=== PATIENT | female | born 1970 | race Caucasian/White ===

== ENCOUNTER 2021-05-18 18:54 | Emergency (ER) | payer MEDICAID ==
[2021-05-18 19:26] LABS: BASOPHILS % (AUTO) 0.3 %; EOSINOPHILS % (AUTO) 0.1 %; HCT - HEMATOCRIT 40.2 % (37.0-47.0); LYMPHOCYTES # (AUTO) 1.8 10^3/uL (1.5-3.5); LYMPHOCYTES % (AUTO) 20.4 %; MEAN CORPUSCULAR HGB CONC 32.3 g/dL (32.0-36.0); MEAN CORPUSCULAR VOLUME 80.4 fL (81.0-99.0); MEAN PLATELET VOLUME 8.8 fL (7.9-10.8); MONOCYTES # (AUTO) 0.7 10^3/uL (0.0-1.0); MONOCYTES % (AUTO) 7.4 %; NEUTROPHILS # (AUTO) 6.4 10^3/uL (1.5-6.6); NEUTROPHILS % (AUTO) 71.6 %; PLT - PLATELET COUNT 366 10^3/uL (130-450); RED CELL DISTRIBUTION WIDTH 14.5 % (12.0-15.0); WHITE BLOOD COUNT 8.9 x10^3/uL (4.8-10.8)
[2021-05-18] MEDS ORDERED: LORazepam 2 MG/ML VIAL IVP STA (19:29)
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
--- OUTSIDE RECORDS SUMMARY | 2021-05-18 19:49 | EXTERNAL MEDICAL SUMMARY RPT | Continuity of Care Document ---
:1970 Author Organization [facility] Address [address] [place] [address] Phone Care Team Providers Name Role Phone [place] Unavailable Unavailable Allergies No information. Encounters No information. Medications No information. Problems Procedures date description facility [id number] [facility] Results No information. Vital Signs date measurement value source 20210217 weight_standard 52.16 lb 20210217 weight_metric 23.66 kg 20210217 temperature_standard 97.9 F 20210217 temperature_metric 36.61 C 20210217 respiration_rate 20 /min 20210217 height_standard 64 in [id number] height_metric 162.56 cm 20210217 heart_rate 83 /min 20210217 BP_systolic 120 mm[Hg] 20210217 BP_diastolic 80 mm[Hg] 20210217 BMI 19.7 kg/m2
[2021-05-18 19:53] LABS: ALBUMIN 4.6 g/dL (3.2-5.5); ALBUMIN/GLOBULIN RATIO 1.2 (1.0-2.2); BILIRUBIN,TOTAL 0.5 mg/dL (0.2-1.0); CALCIUM 9.5 mg/dL (8.5-10.3); CREATININE 0.8 mg/dL (0.4-1.0); POTASSIUM 3.8 mmol/L (3.5-5.0); TOTAL PROTEIN 8.3 g/dL (6.7-8.2)
--- NOTE | 2021-05-18 19:58 | XRAY Report ---
PROCEDURE: Chest 1 View X-Ray INDICATIONS: Chest Pain TECHNIQUE: One view of the chest was acquired. COMPARISON: None FINDINGS: Surgical changes and devices: Cervical thoracic spine fixation hardware. Lungs and pleura: No pleural effusions or pneumothorax. Lungs are clear. Mediastinum: Mediastinal contours appear normal. Heart size is normal. Bones and chest wall: No suspicious bony lesions. Overlying soft tissues appear unremarkable. IMPRESSION: No acute cardiopulmonary disease process. Reviewed by: Martha Worley MD, PhD on 05/18/2021 7:56 PM PDT Approved by: Martha Worley MD, PhD on 05/18/2021 7:56 PM PDT Station ID: [id number]
[2021-05-18 21:23] VITALS: BP 139/99
== END 2021-05-18 21:29 | disposition home or self-care (01) ==
LOC: ED 18:54
DX: F22 Delusional disorders (principal)
CPT/HCPCS: 36415; 80053; 83690; 83880; 84484; 85025; 93005; 96374; 99283

== ENCOUNTER 2021-05-18 22:19 | Outpatient (CLI) | payer MEDICAID | END 2021-05-18 22:20 | disposition critical access hospital (66) | LOC: EMS 22:19 | DX: Z04.1 Encounter for examination and observation following transport accident (principal); R41.82 Altered mental status, unspecified; R46.89 Other symptoms and signs involving appearance and behavior; V49.40XA Driver injured in collision with unspecified motor vehicles in traffic accident, initial encounter; Y92.413 State road as the place of occurrence of the external cause | CPT/HCPCS: A0425; A0427 ==

== ENCOUNTER 2021-05-18 22:31 | Emergency (ER) | payer MEDICAID ==
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
[2021-05-18 22:50] LABS: BASOPHILS # (AUTO) 0.1 10^3/uL (0.0-0.1); BASOPHILS % (AUTO) 0.4 %; EOSINOPHILS % (AUTO) 0.3 %; HCT - HEMATOCRIT 38.4 % (37.0-47.0); HGB - HEMOGLOBIN 12.3 g/dL (12.0-16.0); LYMPHOCYTES # (AUTO) 2.5 10^3/uL (1.5-3.5); LYMPHOCYTES % (AUTO) 19.2 %; MEAN CORPUSCULAR HEMOGLOBIN 26.3 pg (27.0-31.0); MEAN CORPUSCULAR VOLUME 82.2 fL (81.0-99.0); MEAN PLATELET VOLUME 8.4 fL (7.9-10.8); MONOCYTES # (AUTO) 0.8 10^3/uL (0.0-1.0); MONOCYTES % (AUTO) 5.9 %; NEUTROPHILS # (AUTO) 9.6 10^3/uL (1.5-6.6); NEUTROPHILS % (AUTO) 72.8 %; PLT - PLATELET COUNT 344 10^3/uL (130-450); RED BLOOD COUNT 4.67 10^6/uL (4.20-5.40); RED CELL DISTRIBUTION WIDTH 14.6 % (12.0-15.0); WHITE BLOOD COUNT 13.2 x10^3/uL (4.8-10.8)
[2021-05-18] MEDS ORDERED: HYDROmorphone 1 MG/ML CARPUJECT IVP STA ×2 (22:53→23:13)
[2021-05-18] MEDS ORDERED: IOVERSOL 320 100 ML VIAL IVP ONE (22:59)
[2021-05-18 23:08] LABS: ALBUMIN 4.3 g/dL (3.2-5.5); ALBUMIN/GLOBULIN RATIO 1.3 (1.0-2.2); ALKALINE PHOSPHATASE 68 IU/L (42-121); ALT ALANINE AMINOTRANSFERASE 224 IU/L (10-60); AST ASPARTATE AMINOTRANSFERASE 413 IU/L (10-42); BILIRUBIN,TOTAL 0.7 mg/dL (0.2-1.0); BUN - BLOOD UREA NITROGEN 28 mg/dL (6-20); CALCIUM 9.2 mg/dL (8.5-10.3); CARBON DIOXIDE - CO2 26 mmol/L (21-32); CHLORIDE 101 mmol/L (101-111); CREATININE 1.2 mg/dL (0.4-1.0); ETOH - ETHANOL < 5.0 mg/dL; GFR - MDRD 47 (>89); GLUCOSE 167 mg/dL (70-100); LIPASE 63 U/L (22-51); POTASSIUM 3.6 mmol/L (3.5-5.0); SODIUM 140 mmol/L (135-145); TOTAL PROTEIN 7.6 g/dL (6.7-8.2)
--- OUTSIDE RECORDS SUMMARY | 2021-05-18 23:12 | EXTERNAL MEDICAL SUMMARY RPT | Continuity of Care Document ---
:1970 Author Organization [facility] Address [address] [place] [address] Phone Care Team Providers Name Role Phone [place] Unavailable Unavailable Allergies No information. Encounters No information. Medications No information. Problems Procedures date description facility [id number] [facility] Results No information. Vital Signs date measurement value source 20210217 weight_standard 52.16 lb 20210217 weight_metric 23.66 kg 20210217 temperature_standard 97.9 F 20210217 temperature_metric 36.61 C 20210217 respiration_rate 20 /min 20210217 height_standard 64 in 20210217 height_metric 162.56 cm 20210217 heart_rate 83 /min 20210217 BP_systolic 120 mm[Hg] 20210217 BP_diastolic 80 mm[Hg] 20210217 BMI 19.7 kg/m2
[2021-05-18] MEDS ORDERED: D5.45NS W/20 MEQ KCL 1,000 ML IV SCH (23:45)
[2021-05-18] MEDS ORDERED: SODIUM CHLORIDE FLUSH 0.9% 10 ML SYRINGE IVP PRN (23:53)
[2021-05-18] MEDS ORDERED: ACETAMINOPHEN 325 MG TABLET PO PRN (23:53)
[2021-05-19] MEDS ORDERED: HYDROmorphone 1 MG/ML CARPUJECT IVP STA ×3 (00:02→02:05)
[2021-05-19] MEDS ORDERED: HYDROmorphone 2 MG/ML VIAL IVP PRN (00:06)
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
[2021-05-19] MEDS ORDERED: IOVERSOL 320 100 ML VIAL IVP ONE (00:16)
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
[2021-05-19] MEDS ORDERED: SODIUM CHLORIDE FLUSH 0.9% 10 ML SYRINGE IVP SCH (01:00)
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
[2021-05-19 01:30] VITALS: BP 151/105
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
[2021-05-19 02:00] LABS: B. PARAPERTUSSIS- RESP PCR PAN NOT DETECTED; B. PERTUSSIS- RESP PCR PANEL NOT DETECTED; C. PNEUMONIAE- RESP PCR PANEL NOT DETECTED; CORONAVIRUS 229E-RESP PCR NOT DETECTED; CORONAVIRUS HKU1-RESP PCR NOT DETECTED; CORONAVIRUS NL63-RESP PCR NOT DETECTED; CORONAVIRUS OC43-RESP PCR NOT DETECTED; HUMAN METAPNEUMOVIRUS NOT DETECTED; INFLUENZA A- RESP PCR PANEL NOT DETECTED; INFLUENZA B - RESP PCR PANEL NOT DETECTED; M. PNEUMONIAE- RESP PCR PANEL NOT DETECTED; PARAINFLUENZA VIRUS 1 NOT DETECTED; PARAINFLUENZA VIRUS 2 NOT DETECTED; PARAINFLUENZA VIRUS 3 NOT DETECTED; PARAINFLUENZA VIRUS 4 NOT DETECTED; RHINOVIRUS/ENTEROVIRUS NOT DETECTED; RSV- RESP PCR PANEL NOT DETECTED; SARS-CoV-2 -RESP PCR PANEL NOT DETECTED
[2021-05-19] MEDS ORDERED: HEPARIN 5,000 UNIT/ML VIAL SUBQ SCH (09:00)
== END 2021-05-19 02:44 | disposition short-term general hospital (02) ==
LOC: EDBD → EDUNIT# → ED 22:31
DX: S27.0XXA Traumatic pneumothorax, initial encounter (principal); S22.43XA Multiple fractures of ribs, bilateral, initial encounter for closed fracture; S22.20XA Unspecified fracture of sternum, initial encounter for closed fracture; S72.041A Displaced fracture of base of neck of right femur, initial encounter for closed fracture; V49.40XA Driver injured in collision with unspecified motor vehicles in traffic accident, initial encounter; F22 Delusional disorders; Z20.822 Contact with and (suspected) exposure to COVID-19
CPT/HCPCS: 0202U; 36415; 70450; 71045; 71260; 72125; 73502; 74177; 80053; 80320; 83690; 83880; 84484; 85025; 86850; 86900; 86901; 93005; 96374; 96376; 99283; 99284; 99291; A9270; J1170; J2060; Q9967; 85027

== ENCOUNTER 2021-05-19 02:25 | Outpatient (CLI) | payer MEDICAID | END 2021-05-19 02:26 | disposition short-term general hospital (02) | LOC: EMS 02:25 | PROVIDERS: ATTEND Emergency Medicine | DX: S27.2XXA Traumatic hemopneumothorax, initial encounter (principal); S27.0XXA Traumatic pneumothorax, initial encounter; S72.001A Fracture of unspecified part of neck of right femur, initial encounter for closed fracture; S22.43XA Multiple fractures of ribs, bilateral, initial encounter for closed fracture; S22.20XA Unspecified fracture of sternum, initial encounter for closed fracture; V43.92XA Unspecified car occupant injured in collision with other type car in traffic accident, initial encounter; Y92.410 Unspecified street and highway as the place of occurrence of the external cause | CPT/HCPCS: A0425; A0428 ==